=== PATIENT | female | born 1960 | race Caucasian/White ===

== ENCOUNTER 2019-05-30 06:16 | Day surgery (SDC) | payer OTHER ==
[~2019-05-30] VITALS: Ht 154.9 cm; Wt 67.0 kg
[~2019-05-30 06:16] MED LIST: ALPRAZolam 0.5 MG TABLET PO ONE; CYCLOPENTOLATE HCL 1% 2 ML OPHTHALMIC SOLUTION OD SCH; CYCLOPENTOLATE HCL 1% 2 ML OPHTHALMIC SOLUTION ONE; KETOROLAC TROMETHAMINE 0.5% 5 ML OPHTHALMIC SOLUTION ONE; MOXIFLOXACIN HCL 0.5% 3 ML OPHTHALMIC SOLUTION ONE; PHENYLEPHRINE HCL 2.5% 2 ML OPHTHALMIC SOLUTION ONE; RINGERS SOLUTION,LACTATED 500 ML IV ONE; TETRACAINE HCL/PF 0.5% 4 ML OPHTHALMIC SOLUTION OD ONE; TETRACAINE HCL/PF 0.5% 4 ML OPHTHALMIC SOLUTION ONE; TROPICAMIDE 1% 2 ML OPHTHALMIC SOLUTION ONE
[2019-05-30] MEDS ORDERED: HYALURONATE SOD/CHONDROITIN SOD 0.5 ML VIAL IO ONE ×2 (06:17)
[2019-05-30] MEDS ORDERED: HYALURONATE SODIUM 12 MG/ML 0.8 ML SYRINGE IO ONE ×2 (06:17)
[2019-05-30] MEDS ORDERED: EPINEPHrine 1:1,000 [1 MG/ML] AMP IM ONE ×2 (06:17)
[2019-05-30] MEDS ORDERED: LIDOCAINE/PF 1% 2 ML VIAL IARTIC ONE ×2 (06:17)
[2019-05-30] MEDS ORDERED: POVIDONE-IODINE 10% 15 ML SOLUTION UD TP ONE ×2 (06:17)
[2019-05-30] MEDS ORDERED: FentaNYL CITRATE-PF 100 MCG/2 ML VIAL IVP ONE (06:17)
[2019-05-30] MEDS ORDERED: MIDAZOLAM HCL 2 MG/2 ML VIAL IVP ONE (06:17)
[2019-05-30] MEDS ORDERED: PROPOFOL 1% 20 ML VIAL IVP ONE (06:17)
[2019-05-30] MEDS: KETOROLAC TROMETHAMINE 0.5% 5 ML OPHTHALMIC SOLUTION OD SCH ×3 (07:04→07:18)
[2019-05-30] MEDS: PHENYLEPHRINE HCL 2.5% 2 ML OPHTHALMIC SOLUTION OD SCH ×3 (07:05→07:14)
[2019-05-30] MEDS: TROPICAMIDE 1% 2 ML OPHTHALMIC SOLUTION OD SCH ×3 (07:05→07:16)
[2019-05-30] MEDS: MOXIFLOXACIN HCL 0.5% 3 ML OPHTHALMIC SOLUTION OD SCH ×3 (07:07→07:17)
[2019-05-30] MEDS: CYCLOPENTOLATE HCL 2% 2 ML OPHTHALMIC SOLUTION OD SCH ×2 (07:07→07:12)
[2019-05-30 07:29] LABS: GLUCOMETER DEV NAME(LOC) SDS.; GLUCOSE,POINT OF CARE 109 MG/DL (70-110)
[2019-05-30] MEDS ORDERED: LEVO25TA9 PO (07:44)
[2019-05-30] MEDS ORDERED: METF-960 PO (07:45)
[2019-05-30] MEDS ORDERED: LISI-662 PO (07:46)
== END 2019-05-30 09:05 | disposition home or self-care (01) ==
LOC: SURGERY 06:16
PROVIDERS: ATTEND Ophthalmology
DX: E11.36 Type 2 diabetes mellitus with diabetic cataract (principal); H26.8 Other specified cataract; I10 Essential (primary) hypertension; M19.90 Unspecified osteoarthritis, unspecified site; Z98.890 Other specified postprocedural states; Z79.899 Other long term (current) drug therapy
CPT/HCPCS: 66984; 82962; J7120; V2632; J0171; J2250; J2704; J3010; J3490